=== PATIENT | female | born 2000 | race Hispanic/Latino ===

== ENCOUNTER 2022-02-17 14:29 | Outpatient (RCR) | payer OTHER | END 2022-02-25 | LOC: PT 14:29 | PROVIDERS: ATTEND Family Medicine | DX: M54.9 Dorsalgia, unspecified (principal) ==

== ENCOUNTER 2022-03-23 15:00 | Outpatient (RCR) | payer OTHER | END 2022-03-28 | LOC: PT 15:00 | PROVIDERS: ATTEND Family Medicine | DX: M54.9 Dorsalgia, unspecified (principal) ==

== ENCOUNTER 2022-04-09 15:00 | Outpatient (RCR) | payer OTHER | END 2022-04-28 | LOC: PT 15:00 | PROVIDERS: ATTEND Family Medicine | DX: M54.9 Dorsalgia, unspecified (principal) ==